=== PATIENT | male | born 1975 | race Caucasian/White ===

== ENCOUNTER 2020-05-25 21:03 | Emergency (ER) | payer BC ==
[~2020-05-25] VITALS: Ht 190.5 cm; Wt 106.6 kg
[2020-05-25 21:24] VITALS: Ht 190.5 cm; Wt 106.6 kg
[2020-05-25 23:55] VITALS: BP 140/97
== END 2020-05-25 23:55 | disposition home or self-care (01) ==
LOC: ED 21:03
DX: J32.9 Chronic sinusitis, unspecified (principal); J33.9 Nasal polyp, unspecified; E11.9 Type 2 diabetes mellitus without complications